=== PATIENT | male | born 1995 | race Caucasian/White ===

== ENCOUNTER 2019-04-22 19:30 | Emergency (ER) | payer OTHER ==
[~2019-04-22 19:30] MED LIST: IBUP-81 PO
== END 2019-04-22 22:05 | disposition home or self-care (01) ==
LOC: MED 19:30
DX: S39.012A Strain of muscle, fascia and tendon of lower back, initial encounter (principal); Z79.1 Long term (current) use of non-steroidal anti-inflammatories (NSAID); V43.52XA Car driver injured in collision with other type car in traffic accident, initial encounter; Y93.89 Activity, other specified; Y92.410 Unspecified street and highway as the place of occurrence of the external cause; Y99.8 Other external cause status
CPT/HCPCS: 72100; 99283

== ENCOUNTER 2021-10-24 20:29 | Emergency (ER) | payer SELFPAY ==
[~2021-10-24] VITALS: Ht 177.8 cm; Wt 99.8 kg
[2021-10-24 21:05] VITALS: BP 120/76
--- NOTE | 2021-10-24 21:10 | NUR ---
PATIENT TO LOBBY
--- NOTE | 2021-10-24 23:54 | NUR ---
HUNTER BOND EXAMINING PATIENT
[2021-10-25] MEDS ORDERED: IBUPROFEN 600 MG TAB PO ONE (00:05)
[2021-10-25] MEDS ORDERED: NAPR-54 PO (00:34)
--- NOTE | 2021-10-25 00:37 | NUR ---
PT ASSESSED AND D/C BY DR. KAY
[2021-10-25 00:38] VITALS: BP 120/76
== END 2021-10-25 00:37 | disposition home or self-care (01) ==
LOC: MED 20:29
DX: S83.91XA Sprain of unspecified site of right knee, initial encounter (principal); Z79.899 Other long term (current) drug therapy; X58.XXXA Exposure to other specified factors, initial encounter; Y93.89 Activity, other specified; Y92.89 Other specified places as the place of occurrence of the external cause; Y99.8 Other external cause status
CPT/HCPCS: 73562; 93971; 99284; Q0092

== ENCOUNTER 2022-09-17 23:20 | Emergency (ER) | payer MEDICAID, OTHER ==
[~2022-09-17] VITALS: Ht 177.8 cm; Wt 90.7 kg
[~2022-09-17 23:20] MED LIST changes: +NAPR-54 PO
[2022-09-17 23:27] VITALS: BP 123/73
[2022-09-18] MEDS ORDERED: IBUP-1842 PO (00:59)
[2022-09-18 01:10] VITALS: BP 122/72
== END 2022-09-18 01:10 | disposition home or self-care (01) ==
LOC: MED 23:20
DX: S76.311A Strain of muscle, fascia and tendon of the posterior muscle group at thigh level, right thigh, initial encounter (principal); Z79.1 Long term (current) use of non-steroidal anti-inflammatories (NSAID); X58.XXXA Exposure to other specified factors, initial encounter; Y92.89 Other specified places as the place of occurrence of the external cause; Y93.89 Activity, other specified; Y99.8 Other external cause status
CPT/HCPCS: 99282

== ENCOUNTER 2023-05-26 06:20 | Emergency (ER) | payer OTHER ==
[~2023-05-26] VITALS: Ht 177.8 cm; Wt 90.7 kg
[~2023-05-26 06:20] MED LIST changes: +IBUP-1842 PO
[2023-05-26 07:02] VITALS: BP 124/74; PULSE 92; RESP 16; TEMP 101.3; O2SAT 98
[2023-05-26] MEDS ORDERED: ACETAMINOPHEN 325 MG TAB PO ONE (07:10)
[2023-05-26] MEDS ORDERED: DOXY-690 PO (08:29)
[2023-05-26 08:37] LABS: BASOPHILS % (AUTO) 1.6 % (0.0-2.0); EOSINOPHILS % (AUTO) 0.3 % (0.0-4.0); HEMATOCRIT 40.5 % (36-52); HEMOGLOBIN 14.4 g/dL (12.0-18.0); LYMPHOCYTES # (AUTO) 0.9 K/uL (2.0-11.5); LYMPHOCYTES % (AUTO) 27.3 % (20.5-51.1); MEAN CORPUSCULAR HEMOGLOBIN 30 pg (27-31); MEAN CORPUSCULAR HGB CONC 36 g/dL (33-37); MONOCYTES # (AUTO) 0.5 K/uL (0.8-1.0); MONOCYTES % (AUTO) 16.4 % (1.7-9.3); NEUTROPHILS # (AUTO) 1.7 K/uL (1.8-7.7); NEUTROPHILS % (AUTO) 54.4 % (42.2-75.2); PLATELET COUNT (AUTO) 216 K/uL (140-450); RED BLOOD CELL COUNT(AUTO) 4.82 MIL/uL (4.20-6.10); WHITE BLOOD COUNT (AUTO) 3.1 K/uL (4.8-10.8)
[2023-05-26 08:53] LABS: FLU A ANTIGEN negative (NEGATIVE)
[2023-05-26 08:53] LABS: ANION GAP 13.2 (8-16); CALCIUM 8.5 mg/dL (8.5-10.1); CARBON DIOXIDE 29.3 mmol/L (21-32); CREATININE 0.9 mg/dL (0.6-1.3); POTASSIUM 3.5 mmol/L (3.5-5.1)
[2023-05-26 08:54] LABS: FLU B ANTIGEN negative (NEGATIVE)
[2023-05-26 08:57] LABS: ALBUMIN 3.6 g/dL (3.4-5.0); BILIRUBIN,DIRECT 0.1 mg/dL (0.0-0.3); TOTAL BILIRUBIN 0.5 mg/dL (0.0-1.0); TOTAL PROTEIN, SERUM 8.7 g/dL (6.4-8.2)
[2023-05-26 09:19] VITALS: BP 124/74; PULSE 92; RESP 16; TEMP 98; O2SAT 98
== END 2023-05-26 09:21 | disposition home or self-care (01) ==
LOC: MED 06:20
DX: R50.9 Fever, unspecified (principal); R05.9 Cough, unspecified; Z20.822 Contact with and (suspected) exposure to COVID-19; Z79.1 Long term (current) use of non-steroidal anti-inflammatories (NSAID); Z79.2 Long term (current) use of antibiotics
CPT/HCPCS: 36415; 80048; 80076; 85025; 99283